=== PATIENT | male | born 1960 | race Asian ===

== ENCOUNTER 2022-09-04 10:04 | Emergency (ER) | payer OTHER ==
[~2022-09-04] VITALS: Ht 172.7 cm; Wt 99.8 kg
[2022-09-04 10:19] VITALS: BP 138/105; TEMP 98.5
== END 2022-09-04 13:24 | disposition home or self-care (01) ==
LOC: ED 10:04
PROC: 0T9B70Z Drainage of Bladder with Drainage Device, Via Natural or Artificial Opening (ICD-10-PCS; principal; 2022-09-04)
DX: R32 Unspecified urinary incontinence (principal)
CPT/HCPCS: 36415; 51702; 81002; 96374; 99284; J2270

== ENCOUNTER 2022-09-29 08:56 | Emergency (ER) | payer OTHER ==
[~2022-09-29] VITALS: Ht 172.7 cm; Wt 98.0 kg
[2022-09-29 09:00] VITALS: BP 156/82; TEMP 98
== END 2022-09-29 09:05 | disposition home or self-care (01) ==
LOC: ED 08:56
PROC: 0T2BX0Z Change Drainage Device in Bladder, External Approach (ICD-10-PCS; principal; 2022-09-29)
DX: T83.098A Other mechanical complication of other urinary catheter, initial encounter (principal); Y84.6 Urinary catheterization as the cause of abnormal reaction of the patient, or of later complication, without mention of misadventure at the time of the procedure; Y92.89 Other specified places as the place of occurrence of the external cause
CPT/HCPCS: 99281

== ENCOUNTER 2022-10-10 05:30 | Emergency (ER) | payer OTHER ==
[~2022-10-10] VITALS: Ht 172.7 cm; Wt 97.5 kg
[2022-10-10 05:30] VITALS: TEMP 99.2
[2022-10-10 06:45] VITALS: BP 152/82
== END 2022-10-10 06:45 | disposition home or self-care (01) ==
LOC: ED 05:30
PROC: 0T9B70Z Drainage of Bladder with Drainage Device, Via Natural or Artificial Opening (ICD-10-PCS; principal; 2022-10-10)
DX: R33.8 Other retention of urine (principal); Z98.890 Other specified postprocedural states
CPT/HCPCS: 51702; 99283

== ENCOUNTER 2022-11-13 08:50 | Emergency (ER) | payer OTHER ==
[~2022-11-13] VITALS: Ht 172.7 cm; Wt 97.5 kg
[2022-11-13 09:35] LABS: PLATELET COUNT 290 K/uL (142-355)
[2022-11-13 09:47] LABS: POTASSIUM 4.2 mmol/L (3.6-5.2)
[2022-11-13 11:13] VITALS: BP 158/92; TEMP 100
== END 2022-11-13 11:13 | disposition home or self-care (01) ==
LOC: ED 08:50
PROVIDERS: Emergency Medicine
PROC: 0T9B70Z Drainage of Bladder with Drainage Device, Via Natural or Artificial Opening (ICD-10-PCS; principal; 2022-11-13)
DX: N39.0 Urinary tract infection, site not specified (principal); N40.1 Benign prostatic hyperplasia with lower urinary tract symptoms
CPT/HCPCS: 51702; 80053; 81000; 85027; 87077; 87086; 87088; 87186; 96372; 99284; J1885